=== PATIENT | female | born 1965 | race Two or more races ===

== ENCOUNTER 2020-12-17 08:35 | Emergency (ER) | payer OTHER ==
[~2020-12-17] VITALS: Ht 160 cm; Wt 113.4 kg
[2020-12-17 08:48] VITALS: BP 168/88
[2020-12-17 09:24] LABS: Urine WBC None Seen /hpf (0 - 5)
[2020-12-17 09:37] LABS: Urine Bacteria NONE SEEN /hpf (None Seen); Urine Blood Negative /uL (Negative); Urine Specific Gravity 1.007 (1.001-1.035)
[2020-12-17 09:48] LABS: Basophils # (auto) 0 10 ^3/uL (0-0.2); Basophils % (auto) 0.6 % (0.0-2.0); Eosinophils # (auto) 0.1 10 ^3/uL (0-0.8); Eosinophils % (auto) 1.6 % (0.0-7.0); Hematocrit 44.2 % (36.0-46.0); Hemoglobin 15.2 g/dL (12.2-16.2); Lymphocytes # (auto) 2.3 10 ^3/uL (0.4-5.4); Lymphocytes % (auto) 29.6 % (10.0-50.0); Mean Corpuscular Hemoglobin 31.5 pg (28.0-32.0); Mean Corpuscular Hgb Conc. 34.3 g/dL (32.0-36.0); Mean Corpuscular Volume 91.9 fL (80.0-100.0); Monocytes # (auto) 0.6 10 ^3/uL (0-1.3); Monocytes % (auto) 7.9 % (0.0-12.0); Neutrophils # (auto) 4.6 10 ^3/uL (1.6-8.6); Neutrophils % (auto) 60.3 % (37.0-80.0); Nucleated Red Blood Cells % 0.2 %; Red Blood Cells 4.81 10^6/uL (4.0-5.20); White Blood Cell 7.6 10^3/uL (4.4-10.8)
[2020-12-17 10:01] LABS: Albumin 3.6 g/dL (3.4-5.0); Calcium 8.8 mg/dL (8.5-10.1)
[2020-12-17 10:07] LABS: Bilirubin, Total 0.4 mg/dL (0.2-1.0); Total Protein 7.3 g/dL (6.4-8.2)
[2020-12-17] MEDS ORDERED: METR500T PO (17:47)
[2020-12-17] MEDS ORDERED: CIPR500T4 PO (17:47)
[2020-12-17] MEDS ORDERED: PERCOT PO (17:47)
[2020-12-17] MEDS ORDERED: ONDA-144 PO (17:47)
== END 2020-12-17 23:13 | disposition home or self-care (01) ==
LOC: ER 08:35
DX: K57.30 Diverticulosis of large intestine without perforation or abscess without bleeding (principal); N93.9 Abnormal uterine and vaginal bleeding, unspecified; Z90.49 Acquired absence of other specified parts of digestive tract
CPT/HCPCS: 36415; 74176; 80053; 81001; 83605; 84484; 85025; 93005